=== PATIENT | female | born 1955 | race Caucasian/White ===

== ENCOUNTER → 2017-07-08 | Outpatient (CLI) | payer OTHER | LOC: BMCIMAGING 15:20 | PROVIDERS: ATTEND Podiatrist Foot & Ankle Surgery | DX: M84.375A Stress fracture, left foot, initial encounter for fracture (principal) ==

== ENCOUNTER → 2018-06-17 | Outpatient (CLI) | payer OTHER | LOC: BMCIMAGING 16:19 | PROVIDERS: ATTEND Family Medicine | DX: S52.302A Unspecified fracture of shaft of left radius, initial encounter for closed fracture (principal) ==

== ENCOUNTER → 2018-07-09 | Outpatient (CLI) | payer OTHER | LOC: BMCIMAGING 08:17 | PROVIDERS: ATTEND Physician Assistant | DX: S62.102D Fracture of unspecified carpal bone, left wrist, subsequent encounter for fracture with routine healing (principal) ==

== ENCOUNTER → 2018-07-24 | Outpatient (CLI) | payer OTHER | LOC: BMCIMAGING 10:06 | PROVIDERS: ATTEND Physician Assistant | DX: S62.102D Fracture of unspecified carpal bone, left wrist, subsequent encounter for fracture with routine healing (principal) ==